=== PATIENT | female | born 1960 | race Caucasian/White ===

== ENCOUNTER 2024-09-04 17:30 | Inpatient (IN) | payer OTHER ==
[~2024-09-04] VITALS: Ht 157.4 cm; Wt 93.9 kg
[2024-09-04 17:38] VITALS: BP 158/85
[2024-09-04] MEDS ORDERED: diphenhydrAMINE hydrochloride 50 MG/ML VIAL IV ONE (17:40)
[2024-09-04] MEDS ORDERED: Metoclopramide Hydrochloride 10 MG/2 ML VIAL IV ONE (17:40)
[2024-09-04] MEDS ORDERED: Ketorolac Tromethamine 15 MG/ML VIAL IV ONE (17:40)
[2024-09-04] MEDS ORDERED: SODIUM CHLORIDE 0.9% 1,000 ML IV ONE (17:40)
[2024-09-04 18:11] LABS: BASO % 0.3 % (0.0-1.0); EOS % 0.1 % (1.0-4.0); HEMATOCRIT 49.2 % (37.0-47.0); MEAN CELL VOLUME 89.6 fl (81.0-99.0); MEAN CORPUSCULAR HGB 29.1 pg (27.0-31.0); MEAN CORPUSCULAR HGB CONC 32.5 g/dl (33.0-37.0); MEAN PLATELET VOLUME 10.5 fl (9.6-12.3); MONO # 0.5 10*3/uL (0.1-1.0); MONO % 5.3 % (3.0-9.0); NEUT # 7.8 10*3/uL (2.3-7.9); NEUT % 88.1 % (47.0-73.0); PLATELET COUNT AUTOMATED 372 10*3/uL (130-400); RED BLOOD COUNT 5.49 10*6/uL (4.10-5.10); RED CELL DISTRI WIDTH 14.6 % (0-14.5); WHITE BLOOD COUNT 8.9 10*3/uL (4.8-10.8)
[2024-09-04 18:30] LABS: BUN 6 mg/dl (9-23); CHLORIDE 103 mmol/L (98-107); POTASSIUM 3.9 mmol/L (3.4-5.1)
[2024-09-04] MEDS ORDERED: DEXAMETHASONE6 MG PO (18:51)
[2024-09-04] MEDS ORDERED: PAXLOVID 300-11 EAC3 PO (18:51)
[2024-09-04] MEDS ORDERED: Acetaminophen/Hydrocodone 5 MG/325 MG TABLET PO PRN (20:20)
[2024-09-04] MEDS ORDERED: Magnesium Hydroxide 30 ML UDC PO PRN (20:20)
[2024-09-04] MEDS ORDERED: TEMAZEPAM 15 MG CAP PO PRN (20:20)
[2024-09-04] MEDS ORDERED: BISACODYL 10 MG SUPP R PRN (20:20)
[2024-09-04] MEDS ORDERED: Ondansetron Hydrochloride 4 MG/2 ML VIAL IV PRN (20:20)
[2024-09-04] MEDS ORDERED: ACETAMINOPHEN 650 MG SUPP R PRN (20:20)
[2024-09-04] MEDS ORDERED: BISACODYL 5 MG TAB PO PRN (20:20)
[2024-09-04] MEDS ORDERED: ACETAMINOPHEN 325 MG TAB PO PRN (20:20)
[2024-09-04 21:06] LABS: FREE T4 1.45 ng/dl (0.89-1.76)
[2024-09-04 21:53] VITALS: BP 124/69
[2024-09-04] MEDS ORDERED: REMDESIVIR 200 MG in SODIUM CHLORIDE 0.9% 210 ML IV ONE (22:00)
[2024-09-04] MEDS ORDERED: LACTULOSE 20 GM/30 ML UDC PO SCH (22:20)
[2024-09-05 00:14] VITALS: BP 141/66
[2024-09-05 00:29] LABS: URINE AMPHETAMINES Negative (1000ng/ml); URINE BARBITURATES Negative (200ng/ml); URINE BENZODIAZEPINES Negative (200ng/ml); URINE CANNABINOIDS (THC) Negative (50ng/ml); URINE COCAINE Negative (300ng/ml); URINE METHADONE Negative (300ng/ml); URINE OPIATES Negative (300ng/ml); URINE PHENCYCLIDINE Negative (25ng/ml)
[2024-09-05 00:49] LABS: BILIRUBIN Negative (Negative); BLOOD 2+ (Negative); CLARITY Cloudy (Clear); COLOR Yellow (Yellow); GLUCOSE Negative (Negative); KETONE Trace (Negative); LEUKO ESTERASE 2+ (Negative); NITRITE Negative (Negative); SPECIFIC GRAVITY >= 1.030 (1.001-1.030)
[2024-09-05 01:08] LABS: MUCOUS 1+; WBC 51-100 wbc/hpf (0-5)
[2024-09-05 05:46] VITALS: BP 98/57
[2024-09-05 06:23] LABS: BASO % 0.3 % (0.0-1.0); EOS % 0.1 % (1.0-4.0); HEMATOCRIT 44.5 % (37.0-47.0); MEAN CELL VOLUME 90.3 fl (81.0-99.0); MEAN CORPUSCULAR HGB 28.6 pg (27.0-31.0); MEAN CORPUSCULAR HGB CONC 31.7 g/dl (33.0-37.0); MEAN PLATELET VOLUME 11.2 fl (9.6-12.3); MONO # 0.6 10*3/uL (0.1-1.0); NEUT # 5.5 10*3/uL (2.3-7.9); NEUT % 77.9 % (47.0-73.0); PLATELET COUNT AUTOMATED 319 10*3/uL (130-400); RED BLOOD COUNT 4.93 10*6/uL (4.10-5.10); RED CELL DISTRI WIDTH 14.7 % (0-14.5); WHITE BLOOD COUNT 7.1 10*3/uL (4.8-10.8)
[2024-09-05 07:14] LABS: ALKALINE PHOSPHATASE 89 U/L (46-116); BUN 9 mg/dl (9-23); CHLORIDE 105 mmol/L (98-107); CHOLESTEROL 142 mg/dL (<200); CPK 33 U/L (34-171); LDL CHOLESTEROL 100 mg/dL (9-159); POTASSIUM 3.6 mmol/L (3.4-5.1); SGPT/ALT 10 U/L (5-49); TOTAL PROTEIN 6.1 gm/dL (6.0-8.0); TRIGLYCERIDES 82 mg/dl (<150)
[2024-09-05 07:40] VITALS: BP 119/71
[2024-09-05] MEDS ORDERED: Enoxaparin Sodium 40 MG/0.4 ML SYR SC SCH (10:00)
[2024-09-05 16:00] VITALS: BP 109/64
[2024-09-05 16:50] VITALS: BP 122/60
[2024-09-05 20:00] VITALS: BP 104/75
[2024-09-05] MEDS ORDERED: REMDESIVIR 100 MG in SODIUM CHLORIDE 0.9% 230 ML IV SCH (22:00)
[2024-09-06] VITALS: BP 136/79
[2024-09-06 06:06] LABS: BASO % 0.4 % (0.0-1.0); EOS % 0.8 % (1.0-4.0); HEMATOCRIT 44.8 % (37.0-47.0); MEAN CELL VOLUME 90.1 fl (81.0-99.0); MEAN CORPUSCULAR HGB 28.8 pg (27.0-31.0); MEAN CORPUSCULAR HGB CONC 31.9 g/dl (33.0-37.0); MEAN PLATELET VOLUME 11.1 fl (9.6-12.3); MONO # 0.5 10*3/uL (0.1-1.0); MONO % 9.2 % (3.0-9.0); NEUT # 2.9 10*3/uL (2.3-7.9); NEUT % 57.5 % (47.0-73.0); PLATELET COUNT AUTOMATED 322 10*3/uL (130-400); RED BLOOD COUNT 4.97 10*6/uL (4.10-5.10); RED CELL DISTRI WIDTH 14.7 % (0-14.5)
[2024-09-06 06:49] LABS: BUN 9 mg/dl (9-23); CHLORIDE 104 mmol/L (98-107)
[2024-09-06 08:00] VITALS: BP 111/78
[2024-09-06 12:00] VITALS: BP 118/53
[2024-09-06 16:00] VITALS: BP 142/82
[2024-09-06 20:00] VITALS: BP 119/69
[2024-09-07] VITALS: BP 131/80
[2024-09-07 08:00] VITALS: BP 141/82
[2024-09-07 12:00] VITALS: BP 132/71
[2024-09-07 16:00] VITALS: BP 126/78
[2024-09-07 20:00] VITALS: BP 125/71
[2024-09-08] VITALS: BP 125/64
[2024-09-08 08:00] VITALS: BP 124/67
[2024-09-08 12:00] VITALS: BP 128/70
[2024-09-08] MEDS ORDERED: DEXAMETHASONE6 MG PO (15:43)
[2024-09-08] MEDS ORDERED: PAXLOVID 300-11 EAC3 PO (15:45)
[2024-09-09] MEDS ORDERED: REMDESIVIR 100 MG in SODIUM CHLORIDE 0.9% 230 ML IV SCH (11:00)
== END 2024-09-08 15:51 | DRG 720 ==
LOC: ED 17:30 → EDHOLD 19:34 → 4E 09-05 16:27
PROVIDERS: Emergency Medicine; Student in an Organized Health Care Education/Training Program; ADMIT Internal Medicine; ATTEND Internal Medicine
PROC: XW033E5 Introduction of Remdesivir Anti-infective into Peripheral Vein, Percutaneous Approach, New Technology Group 5 (ICD-10-PCS; principal; 2024-09-04)
DX: A41.89 Other specified sepsis (principal); U07.1 COVID-19; J12.82 Pneumonia due to coronavirus disease 2019; G93.41 Metabolic encephalopathy; F29 Unspecified psychosis not due to a substance or known physiological condition; R73.9 Hyperglycemia, unspecified; K76.0 Fatty (change of) liver, not elsewhere classified; K08.409 Partial loss of teeth, unspecified cause, unspecified class; Z98.891 History of uterine scar from previous surgery; Z82.49 Family history of ischemic heart disease and other diseases of the circulatory system; Z83.3 Family history of diabetes mellitus; Z79.01 Long term (current) use of anticoagulants; Z79.899 Other long term (current) drug therapy